=== PATIENT | female | born 1945 | race Caucasian/White ===

== ENCOUNTER 2019-09-12 14:08 | Outpatient (CLI) | payer MEDICARE, SELFPAY ==
--- NOTE | ~2019-09-12 | US_ITS ---
EXAMINATION: US art doppler w press LE DATE: 09/12/2019 16:05 MAT REPAIRER INDICATION: Peripheral vascular disease. TECHNIQUE: Segmental pressures and plethysmographic and Doppler waveforms of the brachial and lower e xtremity arteries were obtained. COMPARISON: None. FINDINGS: Right and left brachial artery pressures of 134 mm Hg and 137 mm Hg, respectively, are concordant (no rmal difference <= 30 mmHg). There is biphasic flow throughout the lower extremity arteries. Pressures could not be obtained and t herefore ankle and toe brachial indices are not performed. IMPRESSION: 1. Limited study. Biphasic flow present throughout the lower extremity arteries. Reviewed, dictated and finalized at location A. REPAIRER IMPRESSION: 1. Limited study. Biphasic flow present throughout the lower extremity arteries .
== END 2019-09-12 14:09 | disposition home or self-care (01) ==
PROVIDERS: PCP Family Medicine; Visit Provider Podiatrist Foot & Ankle Surgery
DX: I73.9 Peripheral vascular disease, unspecified (principal)
CPT/HCPCS: 93923

== ENCOUNTER 2019-09-27 10:01 | Inpatient (IN) | payer MEDICARE, SELFPAY ==
[2019-09-27] VITALS (12 sets, daily range): BP systolic 131–226; BP diastolic 68–135; PULSE 66–118; RESP 16–22; TEMP 36.2–36.8; O2SAT 56–100; BMI 21.7; BMI 22.4
--- NOTE | ~2019-09-27 | XR_ITS ---
EXAMINATION: XR toe 3rd LT min 2V DATE: 09/27/2019 11:17 INDICATION: Osteomyelitis with erythema and swelling at the left third toe. TECHNIQUE: Dorsal plantar, lateral and 2 oblique views of the left third toe were obtained. COMPARISON: Left foot radiographs dated 09/05/2019 FINDINGS: Bone alignment is normal. No fracture. Again seen is loss of the cortical margin and underlying lucen t osteolysis at the tuft of the left third distal phalanx consistent with osteomyelitis. No other les ions suspicious for ostomy colitis. Mild osteoarthritis at the first metatarsophalangeal and if you'v e the profiled interphalangeal joints. The third distal interphalangeal joint is poorly profiled on a ll of the images however there is no evident adjacent osteolysis to suggest septic arthritis. No soft tissue gas or radiopaque foreign bodies. IMPRESSION: Osteomyelitis at the tuft of the left third distal phalanx. Reviewed, dictated and finalized at location A. CLEANER MACHINE TENDER
--- NOTE | ~2019-09-27 | XR_ITS ---
EXAMINATION: XR chest 1V portable INDICATION: Shortness of breath TECHNIQUE: Portable AP chest at 2321 hours COMPARISON: 1108 hours FINDINGS: There is unchanged elevation of the left hemidiaphragm with subsegmental atelectasis of the left lung base. The lungs are otherwise free of acute opacities. There is a curvilinear line project ing over the left hemithorax which suggests pneumothorax however lung markings are seen extending to the chest wall. Finding is likely due to skin fold or other object external to the patient. The cardi omediastinal silhouette is stable. There are surgical changes of the upper abdomen. IMPRESSION: 1. Unchanged subsegmental atelectasis of the left lung base. Reviewed, dictated and finalized at location A. ORATE STRATEGY ASSOCIATE
--- NOTE | ~2019-09-27 | XR_ITS ---
EXAMINATION: NM lung vent and perfusion, XR chest 1V DATE: 09/30/2019 12:34 INDICATION: Aspiration and shortness of breath. Assess for pulmonary embolism. TECHNIQUE: 1. 10.2 mCi xenon-133 by inhalation and 5.3 mCi Tc-99m MAA by intravenous route. Scintigraphic imag es of the chest were obtained. 2. AP view of the chest was obtained. COMPARISON: Chest radiograph dated 09/27/2019 FINDINGS: Chest radiograph: Volume loss in the left hemithorax with unchanged elevation of the left hemidiaphragm. Bandlike opaci ty in the left lower lung zone likely related to associated atelectasis. Right lung remains clear. No pulmonary edema, pneumothorax or evident pleural effusion. Cardiomediastinal silhouette is normal. C holecystectomy clips in right upper quadrant. Additional postoperative changes in the left upper quad rant. Surgical clips at the left and right base of the neck likely related to prior thyroidectomy. VQ scan: There is matched relatively homogeneous asymmetric decreased uptake diffusely throughout the left mecca g on both the posterior ventilation and perfusion images. There is diffuse mild retention of activity throughout the lungs on the subsequent washout images consistent with some degree of obstructive pul monary disease. On the left lateral and LPO perfusion images there is further decreased uptake at the left lower lobe relative to the remainder of the left lung. No other perfusion defects appreciated. IMPRESSION: 1. Intermediate probability for pulmonary embolism. 2. Unchanged opacities in the left lower lung zone with corresponding volume loss consistent with ate lectasis. Differential would include associated small pleural effusion, aspiration, pneumonia or some combination thereof. Reviewed, dictated and finalized at location A. R GRINDER OPERATOR IMPRESSION: 1. Intermediate probability for pulmonary embolism. 2. Unchanged opacities in the left lower lung zone with corresponding volume lo ss consistent with atelectasis. Differential would include associated small ple ural effusion, aspiration, pneumonia or some combination thereof.
--- NOTE | ~2019-09-27 | XR_ITS ---
EXAMINATION: XR chest 2V DATE: 09/27/2019 11:16 INDICATION: Soreness of breath TECHNIQUE: frontal and lateral views of the chest were obtained. COMPARISON: Chest radiograph dated 09/02/[address] dated 06/12/2019 FINDINGS: Elevation of the left hemidiaphragm with bandlike discoid atelectasis extending across the inferior l ingula and left lower lobe. Remainder of lungs are clear. No pulmonary edema, pleural effusion or pne umothorax. The cardiomediastinal silhouette is normal. Cholecystectomy clips in the right upper quadr ant. Additional postoperative changes in the left upper quadrant likely related to prior gastric bypa ss procedure. IMPRESSION: 1. Bandlike atelectasis/scarring at the lingula and left lower lobe with secondary volume loss with e levation of the left hemidiaphragm. Reviewed, dictated and finalized at location A. LER DRIVER IMPRESSION: 1. Bandlike atelectasis/scarring at the lingula and left lower lobe with second graciela volume loss with elevation of the left hemidiaphragm.
--- NOTE | 2019-09-27 10:33 | ED.SOB ---
HPI - SOB/Dyspnea General Chief Complaint: Shortness of Breath/Dyspnea Stated Complaint: left middle toe wound/resp complaints Time Seen by Provider: 09/27/19 10:19 Source: patient and family (Daughter at bedside) Mode of arrival: ambulatory Limitations: no limitations and other (Poor historian) History of Present Illness HPI Narrative: Pt is a 73 y/o female presenting to the ED c/o possible aspiration. Pt's daughter at bedside reports the pt started coughing and choking on thick phlegm yesterday along with SOB. Per daughter, the pt has had multiple diagnosis of Aspiration PNA with sepsis previously, and states she had needed to be on a ventilator once as well. Per daughter, the pt was seen by her PCP. Dr. Callaway, who sent the pt here to undergo a breathing treatment. Pt's daughter states the pt was sent to a Breeder Service Technician for the frequent aspiration and notes the pt has had swallow tests performed previously. Per daughter, the pt has Osteomyelitis in her lt 3rd toe that is currently being monitored and has had an arterial doppler studies performed a week ago. Pt's daughter denies the pt experiencing vomiting. Per daughter, the pt has a Hx of DM. Pt denies SOB or CP currently in her ED bed. Pt is a poor historian. Pertinent past history: pneumonia, aspiration and sepsis Onset (ago): unknown (Yesterday) Associated symptoms: cough (Per daughter), sputum production (Per daughter) and other (SOB (per daughter)) Related Data Home Medications Medication Instructions Recorded Confirmed Lactobacillus acidophilus 2,000 mmu cells PO DAILY 07/02/19 09/27/19 [Probiotic Acidophilus] albuterol sulfate [Proventil HFA] 2 puff INHALATION Q4HWA PRN 07/02/19 09/27/19 alendronate 70 mg PO WEEKLY 07/02/19 09/27/19 budesonide [Pulmicort] 0.25 mg INHALATION BID PRN 07/02/19 09/27/19 deutetrabenazine [Austedo] 12 mg PO BID 07/02/19 09/27/19 fluoxetine 60 mg PO DAILY 07/02/19 09/27/19 fluticasone propionate 1 spray INTRANASAL BID 07/02/19 09/27/19 furosemide 40 mg PO 2XW 07/02/19 09/27/19 ipratropium-albuterol 3 ml INHALATION QID PRN 07/02/19 09/27/19 levothyroxine 100 mcg PO DAILY 07/02/19 09/27/19 potassium chloride 10 meq PO DAILY 07/02/19 09/27/19 vitamin E 400 unit PO WEEKLY 07/02/19 09/27/19 clindamycin HCl 300 mg PO Q8H 09/27/19 09/27/19 doxycycline hyclate 100 mg PO Q12H 09/27/19 09/27/19 Allergies Allergy/AdvReac Type Severity Reaction Status Date / Time rosiglitazone Allergy Severe HIVES/RASH Verified 09/27/19 11:10 celecoxib Allergy Mild Hives Verified 09/27/19 11:10 iodine Allergy Mild Hives Verified 09/27/19 11:10 lidocaine Allergy Mild preserve Verified 09/27/19 11:10 free only shellfish derived Allergy Mild Hives Verified 09/27/19 11:10 Sulfa (Sulfonamide Allergy Mild Hives Verified 09/27/19 11:10 Antibiotics) zinc Allergy Mild hives Verified 09/27/19 11:10 adhesive tape Allergy Unknown Hives / Verified 09/27/19 11:10 Red Face zinc oxide Allergy Unknown Rash Verified 09/27/19 11:10 lisinopril AdvReac Unknown ITCHING/LIGHT Verified 09/27/19 11:10 HEADED DIZZY Contrast Media Allergy Unknown Rash Uncoded 07/03/19 11:12 Review of Systems Review of Systems: All systems reviewed & are unremarkable except as noted in HPI and below Cardiovascular: Cardiovascular: Denies chest pain Respiratory: Respiratory: Reports cough (Productive with phlegm (per daughter)) and Reports dyspnea (Per daughter) Gastrointestinal: Gastrointestinal: Denies vomiting (Per daughter) [facility] Past Medical History Medical History Anxiety Bacterial lobar pneumonia CKD (chronic kidney disease) stage 3 Depression DVT (deep venous thrombosis) Esophageal dilatation GERD (gastroesophageal reflux disease) History of thyroid cancer On home O2 Renal stones Thyroid ca Surgical History Surgical History H/O bariatric surgery H/O esophagogastroduodenosco
[2019-09-27] MEDS: IPRATROPIUM BR 0.02% INH SOLN 0.5 MG/2.5 ML VIAL INHALATION (10:56)
[2019-09-27] MEDS: ALBUTEROL SULFATE NEB 2.5 MG/0.5 ML INH 5 MG INHALATION (10:56)
[2019-09-27 12:18] LABS: Basophils Percent Auto 0.1 % (0.2-1.2); Hematocrit 36.3 % (37.0-47.0); Hemoglobin 11.3 g/dL (12.0-15.0); Immature Granulocyte Absolute 0.05 K/mm3 (0.00-0.031); Immature Granulocyte Percent A 0.5 % (0-0.5); Lymphocytes Absolute Auto 1.06 K/mm3 (0.9-3.2); Lymphocytes Percent Auto 11.6 % (18.3-44.2); Mean Corpuscular HGB Conc 31.1 g/dl (32-36); Mean Corpuscular Hemoglobin 27.2 pg (26-34); Mean Corpuscular Volume 87.5 fl (80-100); Mean Platelet Volume 10.4 fl (7.4-10.4); Monocytes Absolute Auto 0.7 K/mm3 (0.1-0.6); Monocytes Percent Auto 7.4 % (2.6-8.5); Neutrophils Absolute Auto 7.3 K/mm3 (1.3-6.7); Neutrophils Percent Auto 80.4 % (45.5-73.1); Platelet Count Result 241 k/mm3 (150-375); Red Blood Count 4.15 M/mm3 (4.2-5.4); Red Cell Distribution Width 12.9 % (11.5-14.5); White Blood Count 9.1 K/mm3 (4.5-10.0)
[2019-09-27 12:37] LABS: Blood Urea Nitrogen 28 mg/dL (7-17); Calcium 9.6 mg/dL (8.4-10.2); Carbon Dioxide 26 mmol/L (22-30); Chloride 103 mmol/L (98-107); Estimated CRCL calculation 29 ml/min; Estimated Glomerular Filt Rate 40; Glucose 148 mg/dL (65-105); Potassium 5.3 mmol/L (3.4-5.0); Sodium 143 mmol/L (137-145)
--- NOTE | 2019-09-27 14:53 | ADMGEN ---
This patient, Concha Melendez, was admitted to 2 Medical Room 260-. Patient/family oriented to hospital policies and general routines including ID bracelet, bed and alarms, visiting hours, pain management, procedures, bathroom and other care routines, personal items, smoking policy, room service/diet, and visiting hours. Valuables list has been completed. Information on how to activate the Rapid Response Team has been discussed. Patient/Family are encouraged to report perceived risks to care and to ask questions if they do not understand what they are told or what they should do.
--- NOTE | 2019-09-27 15:48 | PM.IMHP ---
H&P: HPI History of Present Illness Chief complaint: osteomyelitis/possible aspiration Narrative: Concha Melendez is a 73 year old female who has been dealing with osteomyelitis to the left 3rd toe since approximately this past August and she has been seeing Dr. Mckee as. The patient has been on both clindamycin and doxycycline. Patient had tendon release last Monday and just had the stitches removed by Dr. Mckee within the last couple days. The patient also has been cough being and having a lot of thick clear sputum. The patient had had aspiration pneumonia in the past. This last May 2019 she was sent to [facility] and ended up on a ventilator at that time. Her daughter was afraid that this could happen again so she took her mother to Dr. Bennett today to be evaluated. The patient has been having problems with swallowing in the past and she had a swallow study which she passed. She has had an EGD with Dr. Mathew and had some esophageal dilatation. The patient used and incentive spirometer at 1 time when she was in hospital and has 1 at home but has not been using it. She also has nebulizer treatments at home that she uses occasionally when needed. The patient has not been vomiting. The daughter tells me that she drinks some water in the emergency room and did have a coughing episode but soon recovered from it. We discussed repeating a swallow study in the daughter denied the need for it at this time. The daughter was fearful that the patient may be getting aspiration pneumonia again. The ED provider looked at the left 3rd toe and decided that it was infected. He did order x-ray for the left foot and was read as osteomyelitis at the tuft of the 3rd left distal phalanx. The patient is diabetic. The patient was started on vancomycin and Primaxin. Date of service 09/27/2019. Review of Systems Review of Systems: Narrative: Complaining of cough without any fever chills. She has thick clears sputum. She has been dealing with infection to the left 3rd toe since approximately August of this year. She has been seeing Dr. mckee the barrel burner for this infection. Ago she had tendon release that toe. Within the last couple days she has had the stitches removed. All systems reviewed & are unremarkable except as noted in HPI and below Constitutional: Constitutional: Reports as per HPI, Reports no additional constitutional complaints and Reports lethargy Eyes: Eyes: Reports as per HPI and Reports no additional eye complaints ENT: Reports system reviewed and no additional complaints, except as documented, Reports Normal hearing present, Reports nasal discharge and Reports other (Postnasal drainage) Cardiovascular: Cardiovascular: Reports no additional cardiovascular complaints Respiratory: Respiratory: Reports no additional respiratory complaints, Reports no additional respiratory complaints and Reports cough Gastrointestinal: Gastrointestinal: Reports as per HPI and Reports no additional gastrointestinal complaints Musculoskeletal: Musculoskeletal: Reports no additional musculoskeletal complaints and Reports other (Pain to left foot) Integumentary/Breasts: Skin/Breast: Reports system reviewed and no additional complaints, except as docu, Reports as per HPI, Reports change in nails and Reports other (Wound to left 3rd toe) Neurologic: Reports system reviewed and no additional complaints, except as documented, Reports as per HPI and Reports Normal hearing present Psychiatric: Psychiatric: Reports no additional psychiatric complaints and Reports as per HPI Comments: History of bipolar. Endocrine: Endocrine: Reports no additional endocrine complaints Hematologic/Lymphatic: Hematologic/Lymphatic: Reports no additional hematologic/lymphatic complaints Allergic/Immunologic: Allergic/Immunologic: Reports no additional allergic/immunologic complaints [facility] Past Medical History Medical History (Updated 09/27/19 @ 16:46 b
[2019-09-27] MEDS: LACTATED RINGERS 1,000 ML 125 ML IV CONT (18:18)
[2019-09-27] MEDS: ONDANSETRON INJ 4 MG/2 ML VIAL IV PUSH (18:38)
[2019-09-27] MEDS: FUROSEMIDE 40 MG TABLET PO (18:42)
[2019-09-27] MEDS: APIXABAN 5 MG TABLET PO (18:42)
[2019-09-27 18:46] LABS: Glucose Point of Care 153 (65-105)
[2019-09-27] MEDS: TRAZODONE HCL 50 MG TABLET PO (22:17)
[2019-09-27] MEDS: FLUTICASONE PROPIONATE 0.05% NA SPR 16 GM BTL (*BKC) 1 SPRAY NASAL (22:17)
[2019-09-27] MEDS: IMIPENEM/CILASTATIN SODIUM 250 MG in DEXTROSE 5% 100 ML 300 MG IVPB (22:17)
[2019-09-27] MEDS: FAMOTIDINE 20 MG TABLET PO (22:17)
--- NOTE | 2019-09-27 23:02 | ECG_ITS ---
Measurements Intervals [place] Rate: 105 P: 81 AK: 179 QRS: -10 QRSD: 109 T: 105 QT: 330 QTc: 437 Interpretive Statements SINUS TACHYCARDIA BORDERLINE ST-T WAVE ABNORMALITY- LATERAL LEADS BASELINE ARTIFACT- II, III, AVR, AVF, V2 ABNORMAL ECG Electronically Signed On 09-28-2019 8:25:24 SLEEVE BASTER by Devon Florez D.O.
[2019-09-27] MEDS: NITROGLYCERIN SL 0.4 MG TABLET SUBLINGUAL ×2 (23:07→23:15)
[2019-09-27 23:21] LABS: Alveolar/Arterial O2 Gradient 68.2 mmHg; Base Excess ABG -2.3 mEq/l (+/-2.0); HCO3 ABG 24.3 mEq/l (22.0-26.0); Oxygen Saturation ABG 99.4 % (95.0-100.0); PCO2 ABG 49.8 mmHg (35.0-45.0); PO2 ABG 232.3 mmHg (80.0-100.0); Total Hemoglobin 12.4 g/dL (12.0-18.0); pH ABG 7.307 (7.350-7.450)
[2019-09-27 23:22] LABS: Device NASAL CANNULA; Fractional Inspired Oxygen 50 %; Modified Allen's Test Pass; Oxygen Content ABG 17.4 %vol (16.0-22.0); Oxyhemoglobin 96.7 % THb (90.0-100.0); PO2 FiO2 Ratio Arterial Blood 4.65 %; Site Drawn RIGHT RADIAL
--- NOTE | 2019-09-27 23:24 | ECG_ITS ---
Measurements Intervals [place] Rate: 90 P: -25 CO: 171 QRS: 69 QRSD: 105 T: -38 QT: 386 QTc: 473 Interpretive Statements SINUS RHYTHM CONSIDER INFERIOR INFARCT, AGE INDETERMINATE ABNORMAL ECG Electronically Signed On 09-28-2019 8:26:13 DRIVING SCHOOL INSTRUCTOR by Devon Florez D.O.
[2019-09-27 23:28] LABS: Hematocrit 37.1 % (37.0-47.0); Hemoglobin 11.3 g/dL (12.0-15.0); Mean Corpuscular HGB Conc 30.5 g/dl (32-36); Mean Corpuscular Volume 88.8 fl (80-100); Mean Platelet Volume 10.4 fl (7.4-10.4); Platelet Count Result 263 k/mm3 (150-375); Red Blood Count 4.18 M/mm3 (4.2-5.4); Red Cell Distribution Width 13.1 % (11.5-14.5); White Blood Count 12.5 K/mm3 (4.5-10.0)
[2019-09-27] MEDS: PHARMACIST COMMUNICATION ORDER 1 EACH XX (23:35)
--- NOTE | 2019-09-27 23:37 | PM.EVENT ---
Event Note Event Note Event Note: This is a 73 year old diabetic female who was just admitted to our Hospitalist service for osteomyelitis today and who tonight suddenly started to ask for a breathing treatment. The patient was complaining of shortness of breath. Shortly afterwards the patient started to experience midsternal chest pain. A rapid response was called and I arrived to bedside within moment. The patient was diaphoretic and tachycardic. Vital signs demonstrated her blood pressure was elevated. She complained to me of severe chest pain. The patient was treated with nitroglycerin SL. EKG was obtained which demonstrated sinus tachycardia. On exam the patient was very wheezy. CXR was obtained which did not demonstrate any changes. She was given a Xopenex Neb. Nursing staff suctioned the patient's mouth. ABG was obtained. The patient improved signifciantly with the nebulization and oxygen supplementation.
[2019-09-27 23:42] LABS: Glucose Point of Care 182 (65-105)
[2019-09-27 23:42] LABS: Lactic Acid 1.2 mmol/L (0.7-2.1)
[2019-09-27 23:44] LABS: Blood Urea Nitrogen 24 mg/dL (7-17); Calcium 8.9 mg/dL (8.4-10.2); Carbon Dioxide 26 mmol/L (22-30); Chloride 102 mmol/L (98-107); Estimated CRCL calculation 32 ml/min; Estimated Glomerular Filt Rate 44; Glucose 216 mg/dL (65-105); Lipase 49 U/L (23-300); Potassium 4.8 mmol/L (3.4-5.0); Sodium 138 mmol/L (137-145)
[2019-09-27 23:55] LABS: Troponin I 0.012 ng/mL (0.000-0.034)
[2019-09-28] VITALS (18 sets, daily range): BP systolic 113–165; BP diastolic 57–82; PULSE 61–112; RESP 17–22; TEMP 36.2–37.3; O2SAT 94–100
[2019-09-28 00:11] LABS: D Dimer 0.79 ug/mL (<0.48)
--- NOTE | 2019-09-28 01:12 | PC.NURSE ---
This patient, Concha Melendez, was received from [[id number] ] on 09/28/19 at 0113. Personal belongings list checked and signed. Patient/family oriented to unit policies and routines
--- NOTE | 2019-09-28 02:24 | PC.NURSE ---
called by Lana Martinez CNA that pt was requesting a breathing treatment, pt complaining of shortness of breath. Respiratory called for PRN breathing treatment. Upon entering pt room, pt short of breath with labored breathing. On room air pt O2 sats 53%. Rapid response called and pt put on 5L O2 NC
[2019-09-28 04:40] LABS: Basophils Percent Auto 0.3 % (0.2-1.2); Eosinophils Percent Auto 0.1 % (0-4.4); Hematocrit 34.1 % (37.0-47.0); Hemoglobin 10.6 g/dL (12.0-15.0); Immature Granulocyte Absolute 0.04 K/mm3 (0.00-0.031); Immature Granulocyte Percent A 0.4 % (0-0.5); Lymphocytes Absolute Auto 0.89 K/mm3 (0.9-3.2); Mean Corpuscular HGB Conc 31.1 g/dl (32-36); Mean Corpuscular Hemoglobin 27.1 pg (26-34); Mean Corpuscular Volume 87.2 fl (80-100); Mean Platelet Volume 9.8 fl (7.4-10.4); Monocytes Absolute Auto 0.9 K/mm3 (0.1-0.6); Monocytes Percent Auto 8.5 % (2.6-8.5); Neutrophils Absolute Auto 9.2 K/mm3 (1.3-6.7); Neutrophils Percent Auto 82.7 % (45.5-73.1); Platelet Count Result 216 k/mm3 (150-375); Red Blood Count 3.91 M/mm3 (4.2-5.4); White Blood Count 11.1 K/mm3 (4.5-10.0)
[2019-09-28 04:48] LABS: Hemoglobin A1C 6.7 % (<5.7)
[2019-09-28 04:59] LABS: Alanine Aminotransferase 26 U/L (4-35); Albumin Level 3.6 g/dL (3.5-5.1); Alkaline Phosphatase 66 U/L (38-126); Aspartate Amino Transferase 29 U/L (14-36); Bilirubin,Total 0.3 mg/dL (0.2-1.3); Blood Urea Nitrogen 23 mg/dL (7-17); Calcium 8.7 mg/dL (8.4-10.2); Carbon Dioxide 28 mmol/L (22-30); Chloride 102 mmol/L (98-107); Estimated CRCL calculation 32 ml/min; Estimated Glomerular Filt Rate 44; Glucose 138 mg/dL (65-105); Magnesium 1.9 mg/dL (1.6-2.3); Potassium 4.9 mmol/L (3.4-5.0); Sodium 137 mmol/L (137-145)
[2019-09-28] MEDS: LACTATED RINGERS 1,000 ML 125 ML IV CONT ×3 (05:26→21:47)
[2019-09-28] MEDS: IMIPENEM/CILASTATIN SODIUM 250 MG in DEXTROSE 5% 100 ML 300 MG IVPB ×3 (05:26→21:50)
[2019-09-28 07:14] LABS: Thyroid Stimulating Hormone Reflex 0.261 uIU/mL (0.465-4.68)
[2019-09-28 07:41] LABS: Free T4 Free Thyroxine Reflex 1.07 ng/dL (0.78-2.19)
[2019-09-28 08:24] LABS: Total Triiodothyronine (T3) 0.79 NG/ML (0.97-1.69)
[2019-09-28 08:28] LABS: Glucose Point of Care 137 (65-105)
[2019-09-28] MEDS: FLUTICASONE PROPIONATE 0.05% NA SPR 16 GM BTL (*BKC) 1 SPRAY NASAL ×2 (09:52→21:47)
--- NOTE | 2019-09-28 10:36 | PHAR ---
[facility] VERIFIED = [id number] [place] 12 MG TWICE A DAY
[2019-09-28 13:10] LABS: Glucose Point of Care 103 (65-105)
--- NOTE | 2019-09-28 13:45 | PM.IMPN ---
Progress Note: A&P Assessment and Plan (1) Shortness of breath: Code(s): R06.02 - Shortness of breath Status: Acute Assessment and Plan: Acute episode this morning resolved after nebulizer treatments and suctioning. Patient has had swallow studies previously which she has passed and does not wish to repeat. She would like to have diet. Patient reports has had pureed diet and will start. Currently on room air. Will monitor. Speech therapist did see patient after my visit with recommendation for minced and moist diet with thin liquids. Diet adjusted. (2) Osteomyelitis: Qualifiers: Osteomyelitis type: unspecified type Osteomyelitis location: foot Laterality: left Qualified Code(s): M86.9 - Osteomyelitis, unspecified Code(s): M86.9 - Osteomyelitis, unspecified Status: Chronic Assessment and Plan: Osteomyelitis of the left 3rd digit. Appreciate help from Dr. Maximo madsen. Currently on IV vancomycin and imipenem. Plan for amputation this coming week. Infectious disease consulted per podiatry for further guidance regarding treatment. Will continue to monitor. (3) DM2 (diabetes mellitus, type 2): Qualifiers: Diabetes mellitus termite exterminator helper insulin use: without residential use Diabetes mellitus complication status: with kidney complications Diabetes mellitus complication detail: with chronic kidney disease Chronic kidney disease stage: stage 3 (moderate) Qualified Code(s): E11.22 - Type 2 diabetes mellitus with diabetic chronic kidney disease; N18.3 - Chronic kidney disease, stage 3 (moderate) Code(s): E11.9 - Type 2 diabetes mellitus without complications Status: Chronic Assessment and Plan: Not on medication at home. Glucose reviewed on 09/28/2019 and stable. Hemoglobin A1c 6.7. Will continue to monitor. Sliding scale insulin available if needed. (4) CKD (chronic kidney disease): Qualifiers: Chronic kidney disease stage: stage 3 (moderate) Qualified Code(s): N18.3 - Chronic kidney disease, stage 3 (moderate) Code(s): N18.9 - Chronic kidney disease, unspecified Status: Chronic Assessment and Plan: Creatinine at baseline. Will monitor. (5) HTN (hypertension) with goal to be determined: Code(s): I10 - Essential (primary) hypertension Status: Chronic Assessment and Plan: Blood pressure reviewed on 09/28/2019 and stable. Will continue to monitor on home spironolactone and furosemide. Telemetry reviewed on 09/28/2019 with sinus rhythm. (6) Hyperlipidemia: Qualifiers: Hyperlipidemia type: unspecified Qualified Code(s): E78.5 - Hyperlipidemia, unspecified Code(s): E78.5 - Hyperlipidemia, unspecified Status: Chronic Assessment and Plan: Continue home atorvastatin. LFTs normal. (7) Iron deficiency anemia: Qualifiers: Iron deficiency anemia type: unspecified iron deficiency Qualified Code(s): D50.9 - Iron deficiency anemia, unspecified Code(s): D50.9 - Iron deficiency anemia, unspecified Status: Chronic Assessment and Plan: Hemoglobin 10.6 today. Will continue to monitor. No active sign of bleeding. (8) Hypothyroidism: Qualifiers: Hypothyroidism type: unspecified Qualified Code(s): E03.9 - Hypothyroidism, unspecified Code(s): E03.9 - Hypothyroidism, unspecified Status: Chronic Assessment and Plan: TSH slightly low but free T4 normal. Will continue home levothyroxine. (9) Dementia: Qualifiers: Dementia type: unspecified type Dementia behavioral disturbance: without behavioral disturbance Qualified Code(s): F03.90 - Unspecified dementia without behavioral disturbance Code(s): F03.90 - Unspecified dementia without behavioral disturbance Status: Chronic Assessment and Plan: Not on specific medication at home. Will monitor. (10) Bipolar 1 disorder: Code(s):
--- NOTE | 2019-09-28 14:58 | PM.IMHP ---
H&P: HPI History of Present Illness Chief complaint: osteomyelitis/possible aspiration Narrative: Concha Melendez is a 73 year old female, I was consulted through the ER to evaluate continued infection of left 3rd digit she has osteomyelitis of the distal phalanx. Denies fever chills nausea vomiting. I was treating patient as an outpatient for a chronic ulcer being treated with oral antibiotics. The patients toe worsened she was admitted September 27 and has been on IV antibiotics relates less pain now. Review of Systems Musculoskeletal: Comments: Swelling and pain to 3rd toe left foot. [facility] Past Medical History Medical History (Updated 09/27/19 @ 18:53 by Sabrina Callaway MD) Anxiety Bacterial lobar pneumonia Bipolar disease, chronic CKD (chronic kidney disease) stage 3 Dementia Depression DM2 (diabetes mellitus, type 2) DVT (deep venous thrombosis) Left leg Esophageal dilatation GERD (gastroesophageal reflux disease) History of kidney stones History of thyroid cancer HTN (hypertension) with goal to be determined Hyperlipidemia Hypothyroidism Secondary to partial thyroidectomy secondary to thyroid cancer Iron deficiency anemia On home O2 Renal stones Systolic murmur Thyroid ca Surgical History Surgical History (Updated 09/27/19 @ 16:16 by Tiffany Sylvester NP) H/O abdominal surgery Adhesiolysis H/O bariatric surgery H/O esophagogastroduodenoscopy H/O release of tendon Left 3rd toe approximately a week ago H/O: hysterectomy History of lithotripsy Multiple times History of thyroidectomy, subtotal Hx of cataract removal with insertion of prosthetic lens Bilaterally Hx of cholecystectomy Total knee replacement status Bilateral Family History Family History (Updated 09/27/19 @ 16:19 by Tiffany Sylvester NP) Mother Hypertension Family history of malignant neoplasm of thyroid Family history of arthritis Sibling Hypertension Asthma Family history of arthritis Family history of kidney disease Family history of malignant neoplasm of thyroid Family history of malignant neoplasm of kidney Daughter Cervical cancer Thyroid cancer Father Diabetes mellitus Other Family history of malignant neoplasm of cervix Social History Social History (Updated 09/27/19 @ 16:49 by Tiffayn Sylvester NP) Social History: Power of aircraft maintenance engineer is Lana Harris and the patient desires to be a full code. The patient is . She rarely drinks and has never smoked. She retired from being a state worker. She has 2 children. Smoking status: Never smoker Second hand tobacco smoke exposure: No Alcohol intake: never Substance use: never Substance use type: does not use Living arrangements: with family Additional living arrangements comments: She lives with her daughter. Occupation/Education: retired Gender identity (if verbalized by the patient): Female Spiritual care concerns: No Agree to blood products: Yes Meds Home Medications and Allergies Home Medications Medication Instructions Recorded Confirmed Type Lactobacillus acidophilus 2,000 mmu cells PO DAILY 07/02/19 09/27/19 History [Probiotic Acidophilus] albuterol sulfate [Proventil HFA] 2 puff INHALATION Q4HWA PRN 07/02/19 09/27/19 History alendronate 70 mg PO WEEKLY 07/02/19 09/27/19 History budesonide [Pulmicort] 0.25 mg INHALATION BID PRN 07/02/19 09/27/19 History deutetrabenazine [Austedo] 12 mg PO BID 07/02/19 09/27/19 History fluoxetine 60 mg PO DAILY 07/02/19 09/27/19 History fluticasone propionate 1 spray INTRANASAL BID 07/02/19 09/27/19 History furosemide 40 mg PO 2XW 07/02/19 09/27/19 History ipratropium-albuterol 3 ml INHALATION QID PRN 07/02/19 09/27/19 History levothyroxine 100 mcg PO DAILY 07/02/19 09/27/19 History potassium chloride 10 meq PO DAILY 07/02/19 09/27/19 History vitamin E 400 unit PO WEEKLY 07/02/19 09/27/19 History apixaban 5 mg tablet 5 mg PO BID #180 tablet 07/23/19 02
--- NOTE | 2019-09-28 15:57 | PCSTNOTE ---
Bedside Swallow Evaluation This pt was seen for a bedside swallow evaluation. She reports nausia and would only accept trials of water and 3cc puree. She is edentulous and was placed on a pureed diet with thin liquids. No signs or symptoms of aspiration were noted with any consistency. The pt did hold thin liquid in her mouth for approx 1 min before initiating a swallow. She said it was due to nausia. It is recommended for the pt to receive an oral diet of minced and moist food and thin liquids. Position during intake should be upright. She should have frequent observation during meals. The following precautions should be observed: -small bites/sips -alternate liquids and solids Skilled ST is not warranted at this time, as the pt's modified diet is due to dentition.
[2019-09-28] MEDS: APIXABAN 5 MG TABLET PO (17:04)
[2019-09-28 17:47] LABS: Glucose Point of Care 131 (65-105)
[2019-09-28] MEDS: MUPIROCIN 2% OINT 22 GM TUBE 1 APPLIC TOPICAL (18:45)
[2019-09-28 21:18] LABS: Glucose Point of Care 126 (65-105)
[2019-09-28] MEDS: FAMOTIDINE 20 MG TABLET PO (21:47)
[2019-09-28] MEDS: TRAZODONE HCL 50 MG TABLET PO (21:47)
[2019-09-29] VITALS (8 sets, daily range): BP systolic 109–119; BP diastolic 59–69; PULSE 60–71; RESP 16–20; TEMP 36.2–36.7; O2SAT 93–97
[2019-09-29 05:35] LABS: Hematocrit 30.4 % (37.0-47.0); Hemoglobin 9.3 g/dL (12.0-15.0); Mean Corpuscular HGB Conc 30.6 g/dl (32-36); Mean Corpuscular Hemoglobin 26.9 pg (26-34); Mean Corpuscular Volume 87.9 fl (80-100); Mean Platelet Volume 10.7 fl (7.4-10.4); Platelet Count Result 184 k/mm3 (150-375); Red Blood Count 3.46 M/mm3 (4.2-5.4); White Blood Count 9.4 K/mm3 (4.5-10.0)
[2019-09-29 05:57] LABS: Blood Urea Nitrogen 16 mg/dL (7-17); Calcium 8.3 mg/dL (8.4-10.2); Carbon Dioxide 30 mmol/L (22-30); Chloride 94 mmol/L (98-107); Estimated CRCL calculation 38 ml/min; Estimated Glomerular Filt Rate 55; Glucose 111 mg/dL (65-105); Magnesium 1.6 mg/dL (1.6-2.3); Potassium 3.7 mmol/L (3.4-5.0); Sodium 135 mmol/L (137-145)
[2019-09-29] MEDS: IMIPENEM/CILASTATIN SODIUM 250 MG in DEXTROSE 5% 100 ML 300 MG IVPB (06:06)
[2019-09-29] MEDS: LACTATED RINGERS 1,000 ML 125 ML IV CONT ×2 (06:06→14:20)
[2019-09-29] MEDS: LEVOTHYROXINE SODIUM 100 MCG TABLET PO (06:06)
[2019-09-29 08:16] LABS: Glucose Point of Care 104 (65-105)
[2019-09-29] MEDS: MAGNESIUM OXIDE 400 MG TABLET PO (09:06)
[2019-09-29] MEDS: FLUOXETINE HCL 20 MG CAP 60 MG PO (09:07)
[2019-09-29] MEDS: APIXABAN 5 MG TABLET PO (09:07)
[2019-09-29] MEDS: ACIDOPHILUS/BULGARICUS CHEWABLE TABLET 1 TABLET PO (09:07)
[2019-09-29] MEDS: SPIRONOLACTONE 25 MG TABLET PO (09:08)
[2019-09-29] MEDS: FAMOTIDINE 20 MG TABLET PO ×2 (09:08→21:40)
[2019-09-29] MEDS: ATORVASTATIN 10 MG TABLET PO (09:08)
[2019-09-29] MEDS: FLUTICASONE PROPIONATE 0.05% NA SPR 16 GM BTL (*BKC) 1 SPRAY NASAL ×2 (09:08→18:46)
[2019-09-29] MEDS: MUPIROCIN 2% OINT 22 GM TUBE 1 APPLIC TOPICAL (09:11)
--- NOTE | 2019-09-29 10:17 | PM.IMPN ---
Progress Note: A&P Assessment and Plan (1) Shortness of breath: Code(s): R06.02 - Shortness of breath Status: Acute Assessment and Plan: Had episode yesterday morning but no further episodes. Was seen by speech therapy for bedside swallow on 09/28/2019 with recommendation for minced moist diet with thin liquids. Does still have thick secretions at times requiring suctioning. Remains on room air. Will monitor. Telemetry reviewed on 09/29/2019 with sinus rhythm -will discontinue telemetry. (2) Osteomyelitis: Qualifiers: Laterality: left Osteomyelitis location: foot Osteomyelitis type: unspecified type Qualified Code(s): M86.9 - Osteomyelitis, unspecified Code(s): M86.9 - Osteomyelitis, unspecified Status: Chronic Assessment and Plan: Osteomyelitis of the left 3rd digit. Appreciate help from Dr. Mckee. Remains on IV vancomycin and imipenem with ID consulted per podiatry for further guidance regarding treatment. Discussed with podiatry today. Plan for surgery tomorrow. Will continue to monitor. (3) DM2 (diabetes mellitus, type 2): Qualifiers: Chronic kidney disease stage: stage 3 (moderate) Diabetes mellitus complication detail: with chronic kidney disease Diabetes mellitus complication status: with kidney complications Diabetes mellitus long goods drier insulin use: without long goods drier use Qualified Code(s): E11.22 - Type 2 diabetes mellitus with diabetic chronic kidney disease; N18.3 - Chronic kidney disease, stage 3 (moderate) Code(s): E11.9 - Type 2 diabetes mellitus without complications Status: Chronic Assessment and Plan: Not on medication at home. Glucose reviewed on 09/29/2019 and controlled. Hemoglobin A1c 6.7. Will continue to monitor. Sliding scale insulin available if needed. (4) CKD (chronic kidney disease): Qualifiers: Chronic kidney disease stage: stage 3 (moderate) Qualified Code(s): N18.3 - Chronic kidney disease, stage 3 (moderate) Code(s): N18.9 - Chronic kidney disease, unspecified Status: Chronic Assessment and Plan: Creatinine 1.00 today and at baseline. Will monitor. (5) HTN (hypertension) with goal to be determined: Code(s): I10 - Essential (primary) hypertension Status: Chronic Assessment and Plan: Blood pressure reviewed on 09/29/2019 and well controlled. Will continue to monitor on home spironolactone and furosemide. (6) Hyperlipidemia: Qualifiers: Hyperlipidemia type: unspecified Qualified Code(s): E78.5 - Hyperlipidemia, unspecified Code(s): E78.5 - Hyperlipidemia, unspecified Status: Chronic Assessment and Plan: Continue home atorvastatin. LFTs normal. (7) Iron deficiency anemia: Qualifiers: Iron deficiency anemia type: unspecified iron deficiency Qualified Code(s): D50.9 - Iron deficiency anemia, unspecified Code(s): D50.9 - Iron deficiency anemia, unspecified Status: Chronic Assessment and Plan: Hemoglobin at 9.3 today but no signs of bleeding. Will continue to monitor. Transfuse if needed. (8) Hypothyroidism: Qualifiers: Hypothyroidism type: unspecified Qualified Code(s): E03.9 - Hypothyroidism, unspecified Code(s): E03.9 - Hypothyroidism, unspecified Status: Chronic Assessment and Plan: TSH slightly low but free T4 normal. Will continue home levothyroxine. (9) Dementia: Qualifiers: Dementia behavioral disturbance: without behavioral disturbance Dementia type: unspecified type Qualified Code(s): F03.90 - Unspecified dementia without behavioral disturbance Code(s): F03.90 - Unspecified dementia without behavioral disturbance Status: Chronic Assessment and Plan: Not on specific medication at home. Appears stable. Will monitor. (10) Bipolar 1 disorder: Code(s): F31.9 - Bipolar disorder, unspecified
--- NOTE | 2019-09-29 11:35 | PC.NURSE ---
This patient, Concha Melendez, was transferred to [facility] on 09/29/19 at 1135. Personal belongings sent with patient. Belongings list checked and signed with receiving RN. Report given to JEREMIAH Ya. Appropriate documentation sent with patient.
[2019-09-29 12:16] LABS: Glucose Point of Care 124 (65-105)
--- NOTE | 2019-09-29 12:21 | PC.NURSE ---
This patient, Concha Melendez, was received from [ [id number]] on 09/29/19 at 1222. Personal belongings list checked and signed. Patient/family oriented to unit policies and routines
--- NOTE | 2019-09-29 13:35 | WPDPN ---
Progress Note: A&P Additional Plan -Scheduled for left third digit amputation MondaySeptember 30, in the afternoon. IV sedation with local anesthsia. -Patients daughter was in the room and is agreeable to amputation. -NPO after breakfast -Obtain consent -Anesthesia consult -Medicine will hold Eliquis until 24 hours post op, start Lovenox. Will continue to monitor patient Dr. Mckee [phone] Time Spent With Patient Time with patient: 15 - 25 minutes Exam Extrem: Ankle/foot/toe images: 1. Less edema and erythema present to the left 3rd digit. Limited distal to the distal interphalangeal joint. Lightly palpable pedal pulses. Objective Data Vital Signs Vital Signs: Vital Signs - 24 hr 09/28/19 14:21 09/28/19 16:00 09/28/19 17:00 Temperature 37.2 C Pulse Rate 77 78 83 Respiratory Rate 18 Blood Pressure 121/67 Pulse Oximetry 97 09/28/19 18:31 09/28/19 19:54 09/28/19 20:00 Temperature 36.3 C L Pulse Rate 81 72 74 Respiratory Rate 18 Blood Pressure 136/72 Pulse Oximetry 98 09/28/19 22:00 09/28/19 23:58 09/29/19 00:00 Temperature 36.6 C Pulse Rate 69 61 62 Respiratory Rate 18 Blood Pressure 116/57 L Pulse Oximetry 97 09/29/19 02:00 09/29/19 04:00 09/29/19 06:00 Temperature 36.2 C L Pulse Rate 64 65 61 Respiratory Rate 20 Blood Pressure 113/59 L Pulse Oximetry 96 09/29/19 08:00 09/29/19 10:00 09/29/19 12:05 Temperature 36.6 C 36.7 C Pulse Rate 61 62 71 Respiratory Rate 20 16 Blood Pressure 119/65 111/69 Pulse Oximetry 97 95 Intake/Output Intake/Output: Intake & Output 09/26/19 09/27/19 09/28/19 09/29/19 23:59 23:59 23:59 23:59 Intake Total 690 2900 1168 Output Total 150 600 650 Balance 540 2300 518 Meds/Results Medications: Active Medications Generic Name Dose Route Start Last Admin Trade Name Freq PRN Reason Stop Dose Admin Albuterol 2.5 mg 09/27/19 15:46 Albuterol Sulf Neb 2.5mg/0.5ml INHALATION Q4HRT PRN Shortness Of Breath Alendronate Sodium 70 mg 09/30/19 06:30 Fosamax PO Mo@0630 NIALL Atorvastatin Calcium 10 mg 09/28/19 09:00 09/29/19 09:08 Lipitor PO 10 mg DAILY NIALL Administration Budesonide 0.25 mg 09/27/19 16:50 Pulmicort Respule Neb INHALATION Q12HRT PRN Wheezing Dextrose 12.5 gm 09/27/19 16:41 Dextrose 50% Syringe IV PUSH PRN PRN Hypoglycemia Protocol Diphenhydramine HCl 25 mg 09/27/19 15:46 Benadryl Inj IV PUSH Q4H PRN Itching Enoxaparin Sodium 60 mg 09/29/19 21:00 Lovenox SUB-Q Q12HR NIALL Famotidine 20 mg 09/27/19 21:00 09/29/19 09:08 Pepcid PO 20 mg Q12HR NIALL Administration Fluoxetine HCl 60 mg 09/28/19 09:00 09/29/19 09:07 Prozac PO 60 mg DAILY NIALL Administration Fluticasone Propionate 1 spray 09/27/19 21:00 09/29/19 09:08 Flonase 0.05% Nasal [place] NASAL 1 spray Q12HR NIALL Administration Furosemide 40 mg 09/27/19 16:50 09/27/19 18:42 Lasix Tablet PO 40 mg TuFr@0900 NIALL Administration Glucagon 1 mg 09/27/19 16:41 Glucagon For Inj IM PRN PRN Hypoglycemia Protocol Glucose 15 gm 09/27/19 16:41 Glutose 15 PO PRN PRN Hypoglycemia Protocol Lactated Ringer's 1,000 mls @ 125 mls/hr 09/27/19 13:20 09/29/19 06:06 Lr - Lactated Ringers Iv IV CONT 125 mls/hr .Q8H NIALL Administration Vancomycin HCl 1,250 mg in 250 mls @ 200 mls/hr 09/27/19 14:00 09/29/19 01:43 Vancomycin 1,250 Mg/D5w 250 Ml IVPB 200 mls/hr Q36H NIALL Administration Dextrose 1,000 mls @ 100 mls/hr 09/27/19 16:41 Dextrose 5% 1,000 Ml IVPB PRN PRN Hypoglycemia Protocol Imipenem/Cilastatin Sodium 250 100 mls @ 300 mls/hr 09/27/19 22:00 09/29/19 07:05 mg/ Dextrose IVPB Infused Q8HR NIALL Infusion Insulin Aspart 2 - 5 units 09/27/19 17:00 09/29/19 08:45 Novolog SUB-Q Not Given TIDWM NIALL Pro
[2019-09-29] MEDS: IMIPENEM/CILASTATIN SODIUM 250 MG in DEXTROSE 5% 100 ML 100 MG IVPB ×2 (14:21→21:41)
--- NOTE | 2019-09-29 15:40 | WPDANESEPP ---
Anes - Eval Pre Procedure Procedure: toe amp Date/Time: 09/29/19 15:40 Surgeon: mode Pre Op Diagnosis: osteomyelitis/possible aspiration Patient Data Age: 73 Gender: F Height: 1.6 m Weight: 59.8 kg Last Vital Signs Temp 36.7 C 09/29/19 12:05 Pulse 71 09/29/19 12:05 Resp 16 09/29/19 12:05 BP 111/69 09/29/19 12:05 Pulse Ox 95 09/29/19 12:05 Allergies Allergy/AdvReac Type Severity Reaction Status Date / Time rosiglitazone Allergy Severe HIVES/RASH Verified 09/27/19 11:10 celecoxib Allergy Mild Hives Verified 09/27/19 11:10 iodine Allergy Mild Hives Verified 09/27/19 11:10 lidocaine Allergy Mild preserve Verified 09/27/19 11:10 free only shellfish derived Allergy Mild Hives Verified 09/27/19 11:10 Sulfa (Sulfonamide Allergy Mild Hives Verified 09/27/19 11:10 Antibiotics) zinc Allergy Mild hives Verified 09/27/19 11:10 adhesive tape Allergy Unknown Hives / Verified 09/27/19 11:10 Red Face zinc oxide Allergy Unknown Rash Verified 09/27/19 11:10 lisinopril AdvReac Unknown ITCHING/LIGHT Verified 09/27/19 11:10 HEADED DIZZY Contrast Media Allergy Unknown Rash Uncoded 07/03/19 11:12 Home Medications Medication Instructions Recorded Confirmed Type Lactobacillus acidophilus 2,000 mmu cells PO DAILY 07/02/19 09/27/19 History [Probiotic Acidophilus] albuterol sulfate [Proventil HFA] 2 puff INHALATION Q4HWA PRN 07/02/19 09/27/19 History alendronate 70 mg PO WEEKLY 07/02/19 09/27/19 History budesonide [Pulmicort] 0.25 mg INHALATION BID PRN 07/02/19 09/27/19 History deutetrabenazine [Austedo] 12 mg PO BID 07/02/19 09/27/19 History fluoxetine 60 mg PO DAILY 07/02/19 09/27/19 History fluticasone propionate 1 spray INTRANASAL BID 07/02/19 09/27/19 History furosemide 40 mg PO 2XW 07/02/19 09/27/19 History ipratropium-albuterol 3 ml INHALATION QID PRN 07/02/19 09/27/19 History levothyroxine 100 mcg PO DAILY 07/02/19 09/27/19 History potassium chloride 10 meq PO DAILY 07/02/19 09/27/19 History vitamin E 400 unit PO WEEKLY 07/02/19 09/27/19 History apixaban 5 mg tablet 5 mg PO BID #180 tablet 07/23/19 09/27/19 Rx atorvastatin 10 mg tablet 10 mg PO DAILY #90 tablet 07/23/19 09/27/19 Rx magnesium oxide 400 mg (241.3 mg 400 mg PO DAILY #90 tablet 07/23/19 09/27/19 Rx magnesium) tablet spironolactone 25 mg tablet 25 mg PO DAILY #30 tablet 07/25/19 09/27/19 Rx famotidine 20 mg tablet 20 mg PO BID #180 tablet 08/19/19 09/27/19 Rx trazodone 50 mg tablet 50 mg PO HS #90 tablet 09/03/19 09/27/19 Rx clindamycin HCl 300 mg PO Q8H 09/27/19 09/27/19 History doxycycline hyclate 100 mg PO Q12H 09/27/19 09/27/19 History Laboratory Tests 09/28/19 09/28/19 09/29/19 17:02 21:12 05:04 WBC 9.4 K/mm3 K/mm3 (4.5-10.0) RBC 3.46 M/mm3 L M/mm3 (4.2-5.4) Hgb 9.3 g/dL L g/dL (12.0-15.0) Hct 30.4 % L % (37.0-47.0) MCV 87.9 fl fl (80-100) MCH 26.9 pg pg (26-34) MCHC 30.6 g/dl L g/dl (32-36) RDW 13.0 % % (11.5-14.5) Plt Count 184 k/mm3 k/mm3 (150-375) MPV 10.7 fl H fl (7.4-10.4) Sodium Potassium Chloride Carbon Dioxide BUN Creatinine Estim Creat Clear Calc Estimated GFR Glucose POC Capillary Glucose 131 mg/dl H mg/dl 126 mg/dl H mg/dl (65-105) (65-105) Calcium Magnesium 09/29/19 09/29/19 09/29/19 05:04 08:09 12:10 WBC RBC Hgb Hct MCV MCH MCHC RDW Plt Count MPV Sodium 135 mmol/L L mmol/L (137-145) Potassium 3.7 mmol/L mmol/L (3.4-5.0) Chloride 94 mmol/L L mmol/L (98-107) Carbon Dioxide 30 mmol/L mmol/L (22-30) BUN 16 mg/dL mg/dL (7-17) Creatinine 1.00 mg/d
[2019-09-29 18:11] LABS: Glucose Point of Care 98 (65-105)
[2019-09-29] MEDS: ONDANSETRON INJ 4 MG/2 ML VIAL IV PUSH (18:53)
[2019-09-29] MEDS: ENOXAPARIN 60 MG/0.6 ML SYRINGE SUB-Q (21:41)
[2019-09-29] MEDS: TRAZODONE HCL 50 MG TABLET PO (21:42)
[2019-09-29 21:59] LABS: Glucose Point of Care 123 (65-105)
[2019-09-30] VITALS (12 sets, daily range): BP systolic 123–157; BP diastolic 66–89; PULSE 48–65; RESP 14–20; TEMP 36.4–36.8; O2SAT 95–100
[2019-09-30] MEDS: LACTATED RINGERS 1,000 ML 125 ML IV CONT (00:09)
[2019-09-30] MEDS: IMIPENEM/CILASTATIN SODIUM 250 MG in DEXTROSE 5% 100 ML 100 MG IVPB (05:28)
[2019-09-30 06:02] LABS: Hematocrit 31.5 % (37.0-47.0); Hemoglobin 9.7 g/dL (12.0-15.0); Mean Corpuscular HGB Conc 30.8 g/dl (32-36); Mean Corpuscular Hemoglobin 27.2 pg (26-34); Mean Corpuscular Volume 88.5 fl (80-100); Mean Platelet Volume 10.5 fl (7.4-10.4); Platelet Count Result 172 k/mm3 (150-375); Red Blood Count 3.56 M/mm3 (4.2-5.4); Red Cell Distribution Width 12.7 % (11.5-14.5); White Blood Count 7.6 K/mm3 (4.5-10.0)
[2019-09-30 06:10] LABS: Blood Urea Nitrogen 17 mg/dL (7-17); Calcium 8.1 mg/dL (8.4-10.2); Carbon Dioxide 33 mmol/L (22-30); Chloride 98 mmol/L (98-107); Estimated CRCL calculation 32 ml/min; Estimated Glomerular Filt Rate 44; Glucose 116 mg/dL (65-105); Magnesium 1.7 mg/dL (1.6-2.3); Potassium 3.8 mmol/L (3.4-5.0); Sodium 136 mmol/L (137-145)
[2019-09-30] MEDS: ALENDRONATE SODIUM 70 MG TABLET PO (06:44)
[2019-09-30] MEDS: LEVOTHYROXINE SODIUM 100 MCG TABLET PO (06:44)
[2019-09-30] MEDS: FLUOXETINE HCL 20 MG CAP 60 MG PO (08:25)
[2019-09-30] MEDS: ACIDOPHILUS/BULGARICUS CHEWABLE TABLET 1 TABLET PO (08:25)
[2019-09-30] MEDS: FAMOTIDINE 20 MG TABLET PO ×2 (08:25→20:10)
[2019-09-30] MEDS: SPIRONOLACTONE 25 MG TABLET PO (08:27)
[2019-09-30] MEDS: ATORVASTATIN 10 MG TABLET PO (08:28)
[2019-09-30] MEDS: FLUTICASONE PROPIONATE 0.05% NA SPR 16 GM BTL (*BKC) 1 SPRAY NASAL ×2 (08:29→20:10)
[2019-09-30] MEDS: MUPIROCIN 2% OINT 22 GM TUBE 1 APPLIC TOPICAL (08:35)
--- NOTE | 2019-09-30 09:41 | PCWOUND ---
WOCN NOTE Received referral to see patient for tow wound. patient is being followed by Dr Mckee and going to surgery today.
[2019-09-30] MEDS: MAGNESIUM OXIDE 400 MG TABLET PO (11:11)
[2019-09-30 12:11] LABS: Glucose Point of Care 91 (65-105)
--- NOTE | 2019-09-30 12:48 | WPDHPUPDATE1 ---
History and Physical Update Update Date/Time: 09/30/19 12:48 History and Physical has been reviewed, including an updated exam of the patient. There are NO changes in the patient's condition. Risks, benefits, and alternatives have been discussed and questions answered. Patient agrees to proceed with procedure. Consented for third digit amputation left foot.
[2019-09-30] MEDS: LACTATED RINGERS 1,000 ML 30 ML IV CONT ×2 (13:14→14:18)
--- NOTE | 2019-09-30 13:22 | WPDANESEPPF ---
Anes - Initial Pre Proc Eval Procedure: Operation Date: 09/30/19 13:00 Proposed Procedures p Amputation of third digit left foot - Sanford Mckee JR, MD Date/Time: 09/30/19 13:22 Surgeon: Estela Moore MD Pre Op Diagnosis: osteomyelitis/possible aspiration Patient Data Age: 73 Gender: F Height: 5 ft 3 in Weight: 61.8 kg Last Vital Signs Temp 97.6 F 09/30/19 13:04 Pulse 54 L 09/30/19 13:04 Resp 20 09/30/19 13:04 BP 146/72 H 09/30/19 13:04 Pulse Ox 97 09/30/19 13:04 Allergies Allergy/AdvReac Type Severity Reaction Status Date / Time rosiglitazone Allergy Severe HIVES/RASH Verified 09/27/19 11:10 celecoxib Allergy Mild Hives Verified 09/27/19 11:10 iodine Allergy Mild Hives Verified 09/27/19 11:10 lidocaine Allergy Mild preserve Verified 09/27/19 11:10 free only shellfish derived Allergy Mild Hives Verified 09/27/19 11:10 Sulfa (Sulfonamide Allergy Mild Hives Verified 09/27/19 11:10 Antibiotics) zinc Allergy Mild hives Verified 09/27/19 11:10 adhesive tape Allergy Unknown Hives / Verified 09/27/19 11:10 Red Face zinc oxide Allergy Unknown Rash Verified 09/27/19 11:10 lisinopril AdvReac Unknown ITCHING/LIGHT Verified 09/27/19 11:10 HEADED DIZZY Contrast Media Allergy Unknown Rash Uncoded 07/03/19 11:12 Home Medications Medication Instructions Recorded Confirmed Type Lactobacillus acidophilus 2,000 mmu cells PO DAILY 07/02/19 09/27/19 History [Probiotic Acidophilus] albuterol sulfate [Proventil HFA] 2 puff INHALATION Q4HWA PRN 07/02/19 09/27/19 History alendronate 70 mg PO WEEKLY 07/02/19 09/27/19 History budesonide [Pulmicort] 0.25 mg INHALATION BID PRN 07/02/19 09/27/19 History deutetrabenazine [Austedo] 12 mg PO BID 07/02/19 09/27/19 History fluoxetine 60 mg PO DAILY 07/02/19 09/27/19 History fluticasone propionate 1 spray INTRANASAL BID 07/02/19 09/27/19 History furosemide 40 mg PO 2XW 07/02/19 09/27/19 History ipratropium-albuterol 3 ml INHALATION QID PRN 07/02/19 09/27/19 History levothyroxine 100 mcg PO DAILY 07/02/19 09/27/19 History potassium chloride 10 meq PO DAILY 07/02/19 09/27/19 History vitamin E 400 unit PO WEEKLY 07/02/19 09/27/19 History apixaban 5 mg tablet 5 mg PO BID #180 tablet 07/23/19 09/27/19 Rx atorvastatin 10 mg tablet 10 mg PO DAILY #90 tablet 07/23/19 09/27/19 Rx magnesium oxide 400 mg (241.3 mg 400 mg PO DAILY #90 tablet 07/23/19 09/27/19 Rx magnesium) tablet spironolactone 25 mg tablet 25 mg PO DAILY #30 tablet 07/25/19 09/27/19 Rx famotidine 20 mg tablet 20 mg PO BID #180 tablet 08/19/19 09/27/19 Rx trazodone 50 mg tablet 50 mg PO HS #90 tablet 09/03/19 09/27/19 Rx clindamycin HCl 300 mg PO Q8H 09/27/19 09/27/19 History doxycycline hyclate 100 mg PO Q12H 09/27/19 09/27/19 History Laboratory Tests 09/29/19 09/29/19 09/30/19 17:47 21:52 05:50 WBC 7.6 K/mm3 K/mm3 (4.5-10.0) RBC 3.56 M/mm3 L M/mm3 (4.2-5.4) Hgb 9.7 g/dL L g/dL (12.0-15.0) Hct 31.5 % L % (37.0-47.0) MCV 88.5 fl fl (80-100) MCH 27.2 pg pg (26-34) MCHC 30.8 g/dl L g/dl (32-36) RDW 12.7 % % (11.5-14.5) Plt Count 172 k/mm3 k/mm3 (150-375) MPV 10.5 fl H fl (7.4-10.4) Sodium Potassium Chloride Carbon Dioxide BUN Creatinine Estim Creat Clear Calc Estimated GFR Glucose POC Capillary Glucose 98 mg/dl mg/dl 123 mg/dl H mg/dl (65-105) (65-105) Calcium Magnesium 09/30/19 09/30/19 05:50 11:15 WBC RBC Hgb Hct MCV MCH MCHC RDW Plt Count MPV Sodium 136 mmol/L L mmol/L (137-145) Potassium 3.8 mmol/L mmol/L (3.4-5.0) Chloride 98 mmol/L mmol/L (98-107) Carbon Dioxide 33 mmol/L H
--- NOTE | 2019-09-30 14:06 | PCOTNOTE ---
Patient unavailable to be seen for OT this PM, in procedure to remove third digit from foot at this time. Will continue POC.
--- NOTE | 2019-09-30 14:10 | SUR.OPER ---
speciman given to mendez in lab
--- NOTE | 2019-09-30 14:47 | PM.OP ---
Procedure Note - Brief Procedure Note - Brief Date of procedure: 09/30/19 Pre-op diagnosis: osteomyelitis/possible aspiration Post-op diagnosis: same Procedure performed: 3rd digit amputation left foot Anesthesia: MAC and local Surgeon: Sanford Mckee JR, DPM Estimated blood loss (mL): 30 Complications: No immediate complications Condition: stable
[2019-09-30 14:57] LABS: Glucose Point of Care 86 (65-105)
[2019-09-30] MEDS: IMIPENEM/CILASTATIN SODIUM 250 MG in DEXTROSE 5% 100 ML 125 MG IVPB (16:13)
--- NOTE | 2019-09-30 17:18 | PM.IMPN ---
Progress Note: A&P Assessment and Plan (1) Osteomyelitis: Qualifiers: Laterality: left Osteomyelitis location: foot Osteomyelitis type: unspecified type Qualified Code(s): M86.9 - Osteomyelitis, unspecified Code(s): M86.9 - Osteomyelitis, unspecified Status: Chronic Assessment and Plan: Osteomyelitis of the left 3rd digit. Appreciate help from Dr. Mckee. S/P amputation left 3rd toe this afternoon. Discussed with Dr. Mckee. Based on findings during surgery, will not have ID see at this time as consult no longer necessary. Remains on IV vancomycin and imipenem. Plan for oral antibiotics at discharge. Continue PT/OT. Anticipate need for SNF at discharge. Awaiting authorization. Should be able to discharge once placement secured. (2) Shortness of breath: Code(s): R06.02 - Shortness of breath Status: Acute Assessment and Plan: Had episode on the morning of 09/28/2019 but no further episodes. Was seen by speech therapy for bedside swallow on 09/28/2019 with recommendation for minced moist diet with thin liquids. Longstanding issue. No noted issues with swallowing. Placed on oxygen after surgery but was not requiring before and anticipating weaning off. Will monitor. (3) DM2 (diabetes mellitus, type 2): Qualifiers: Chronic kidney disease stage: stage 3 (moderate) Diabetes mellitus complication detail: with chronic kidney disease Diabetes mellitus complication status: with kidney complications Diabetes mellitus fdc insulin use: without fdc use Qualified Code(s): E11.22 - Type 2 diabetes mellitus with diabetic chronic kidney disease; N18.3 - Chronic kidney disease, stage 3 (moderate) Code(s): E11.9 - Type 2 diabetes mellitus without complications Status: Chronic Assessment and Plan: Not on medication at home. Glucose reviewed on 09/30/2019 and remains controlled. Hemoglobin A1c 6.7. Will continue to monitor. Sliding scale insulin available if needed. (4) CKD (chronic kidney disease): Qualifiers: Chronic kidney disease stage: stage 3 (moderate) Qualified Code(s): N18.3 - Chronic kidney disease, stage 3 (moderate) Code(s): N18.9 - Chronic kidney disease, unspecified Status: Chronic Assessment and Plan: Creatinine stable at 1.20 today. At baseline. Will monitor. (5) HTN (hypertension) with goal to be determined: Code(s): I10 - Essential (primary) hypertension Status: Chronic Assessment and Plan: Blood pressure reviewed on 09/30/2019 and stable. Will continue to monitor on home spironolactone and furosemide. (6) Hyperlipidemia: Qualifiers: Hyperlipidemia type: unspecified Qualified Code(s): E78.5 - Hyperlipidemia, unspecified Code(s): E78.5 - Hyperlipidemia, unspecified Status: Chronic Assessment and Plan: Continue home atorvastatin. LFTs normal. (7) Iron deficiency anemia: Qualifiers: Iron deficiency anemia type: unspecified iron deficiency Qualified Code(s): D50.9 - Iron deficiency anemia, unspecified Code(s): D50.9 - Iron deficiency anemia, unspecified Status: Chronic Assessment and Plan: Hemoglobin at 9.7 today and stable. Will continue to monitor. (8) Hypothyroidism: Qualifiers: Hypothyroidism type: unspecified Qualified Code(s): E03.9 - Hypothyroidism, unspecified Code(s): E03.9 - Hypothyroidism, unspecified Status: Chronic Assessment and Plan: TSH slightly low but free T4 normal. Will continue home levothyroxine. (9) Dementia: Qualifiers: Dementia behavioral disturbance: without behavioral disturbance Dementia type: unspecified type Qualified Code(s): F03.90 - Unspecified dementia without behavioral disturbance Code(s): F03.90 - Unspecified dementia without behavioral disturbance Status: Chronic Assessment and Plan: Not o
[2019-09-30] MEDS: ENOXAPARIN 60 MG/0.6 ML SYRINGE SUB-Q ×2 (18:32→20:10)
--- NOTE | 2019-09-30 18:47 | OP_ITS ---
DATE OF PROCEDURE: 09/30/2019 PREOPERATIVE DIAGNOSIS: Chronic osteomyelitis of the left 3rd digit. POSTOPERATIVE DIAGNOSIS: Chronic osteomyelitis of the left 3rd digit. PROCEDURE: 3rd digit amputation, left foot. PATHOLOGY: 3rd digit left foot sent for gross and histopathology. ANESTHESIA: MAC with local. HEMOSTASIS: Pneumatic ankle tourniquet at 250 mmHg. ESTIMATED BLOOD LOSS: 20 cc. MATERIALS: 4-0 Vicryl and 4-0 Prolene. INJECTABLES: 10 cc of 0.5% Marcaine plain injected preoperatively. COMPLICATIONS: None. PROCEDURE IN DETAIL: Under mild sedation, the patient was brought to the operating room and placed on the operating table in the supine position. Pneumatic ankle tourniquet was placed about the patient's left ankle. Following IV sedation, local anesthesia obtained about the left foot utilizing 10 cc of 0.5% Marcaine plain. The foot was then scrubbed, prepped, and draped in the usual aseptic manner. An Esmarch bandage was then used to examine the patient's left foot and pneumatic ankle tourniquet was inflated. A racket style incision was made along the base of the left 3rd digit. The incision was continued deep down through subcutaneous tissues using sharp and blunt dissection. All bleeders were attempted to be cauterized as necessary. Hemostasis was unable to be achieved due to calcification of the vessel, so the tourniquet was dropped after 2 minutes and had been elevated. After the tourniquet was released, there was less bleeding present at the operative site. The incision was continued deep down to the level of the metatarsophalangeal joint where the 2nd digit was disarticulated. The wound site was then flushed with copious amounts of sterile saline. The 3rd digit was sent for gross and histopathology. A deep wound culture swab was taken from the ulceration present to the distal 3rd digit. There was no remaining nonviable tissue present along the amputation site. The wound site was flushed with copious amounts of sterile saline. All bleeders were cauterized as necessary. At this point, the subcutaneous structures were reapproximated and coapted utilizing 4-0 Vicryl. Next, the skin was reapproximated and coapted utilizing 4-0 Prolene in simple interrupted suture technique. Upon completion of the procedure, the incision was dressed with Adaptic, 4x4s, Kerlix, and Coban. The pneumatic postop shoe was then applied to the left foot. The patient did very well with the procedure and anesthesia. She was transferred to the recovery room with vital signs stable and vascular status intact to all toes of the left foot. Following a period of postoperative monitoring, the patient will be admitted back to the floor under the following instructions: 1. Keep the dressing clean, dry, and intact. 2. The patient to be strictly on bed rest with bathroom privileges. 3. The patient should elevate the left foot when at rest. 4. The patient should use surgical shoe at all times with ambulating. 5. The patient should contact. I will follow up with the patient tomorrow morning to change the dressing. Hydromorphone was prescribed through IV to help with postoperative pain q.3 hours as needed for severe pain greater than 6/10. D I MT: Roxana
[2019-09-30 19:54] LABS: Vancomycin Trough 40.2 ug/mL (10.0-20.0)
[2019-09-30] MEDS: TRAZODONE HCL 50 MG TABLET PO (20:10)
[2019-09-30] MEDS: ONDANSETRON INJ 4 MG/2 ML VIAL IV PUSH (20:24)
[2019-09-30 21:19] LABS: Glucose Point of Care 122 (65-105)
[2019-10-01] MEDS: LACTATED RINGERS 1,000 ML 125 ML IV CONT ×2 (04:27→13:14)
[2019-10-01 06:00] VITALS: BP 142/66; PULSE 51; RESP 18; TEMP 36.3; O2SAT 100
[2019-10-01] MEDS: LEVOTHYROXINE SODIUM 100 MCG TABLET PO (06:17)
[2019-10-01 06:34] LABS: Hematocrit 31.6 % (37.0-47.0); Hemoglobin 9.8 g/dL (12.0-15.0); Mean Corpuscular Hemoglobin 27.1 pg (26-34); Mean Corpuscular Volume 87.3 fl (80-100); Mean Platelet Volume 10.6 fl (7.4-10.4); Platelet Count Result 176 k/mm3 (150-375); Red Blood Count 3.62 M/mm3 (4.2-5.4); Red Cell Distribution Width 12.5 % (11.5-14.5); White Blood Count 7.9 K/mm3 (4.5-10.0)
[2019-10-01 06:53] LABS: Blood Urea Nitrogen 16 mg/dL (7-17); Calcium 8.1 mg/dL (8.4-10.2); Carbon Dioxide 31 mmol/L (22-30); Chloride 97 mmol/L (98-107); Estimated CRCL calculation 46 ml/min; Estimated Glomerular Filt Rate > 60; Glucose 90 mg/dL (65-105); Sodium 137 mmol/L (137-145)
[2019-10-01] MEDS: IMIPENEM/CILASTATIN SODIUM 250 MG in DEXTROSE 5% 100 ML 300 MG IVPB ×2 (07:00→14:31)
[2019-10-01 08:48] LABS: Glucose Point of Care 101 (65-105)
[2019-10-01] MEDS: FLUOXETINE HCL 20 MG CAP 60 MG PO (09:24)
[2019-10-01] MEDS: ATORVASTATIN 10 MG TABLET PO (09:26)
[2019-10-01] MEDS: ACIDOPHILUS/BULGARICUS CHEWABLE TABLET 1 TABLET PO (09:26)
[2019-10-01] MEDS: FUROSEMIDE 40 MG TABLET PO (09:26)
[2019-10-01] MEDS: FAMOTIDINE 20 MG TABLET PO (09:28)
[2019-10-01] MEDS: MAGNESIUM OXIDE 400 MG TABLET PO (09:28)
[2019-10-01] MEDS: VITAMIN E 400 UNIT CAPSULE PO (09:28)
[2019-10-01] MEDS: SPIRONOLACTONE 25 MG TABLET PO (09:29)
[2019-10-01] MEDS: FLUTICASONE PROPIONATE 0.05% NA SPR 16 GM BTL (*BKC) 1 SPRAY NASAL (09:30)
[2019-10-01] MEDS: ENOXAPARIN 60 MG/0.6 ML SYRINGE SUB-Q (09:30)
--- NOTE | 2019-10-01 09:53 | WPDANESPN ---
Anes - Prog Note Post-Op Date/Time: 10/01/19 09:53 Cardiovascular status: normal Respiratory status: normal Airway patency: baseline Mental status: baseline Post-Op hydration status: normal Vital Signs: Last Vital Signs Temp 36.3 C L 10/01/19 06:00 Pulse 51 L 10/01/19 06:00 Resp 18 10/01/19 06:00 BP 142/66 H 10/01/19 06:00 Pulse Ox 100 10/01/19 06:00 I/O: Intake & Output 09/30/19 10/01/19 10/01/19 23:59 07:59 15:59 Intake Total 450 350 Output Total 1000 200 Balance -550 150 Laboratory Tests 10/01/19 06:05 10/01/19 06:05 09/30/19 09/30/19 09/30/19 11:15 14:55 17:40 WBC RBC Hgb Hct MCV MCH MCHC RDW Plt Count MPV Sodium Potassium Chloride Carbon Dioxide BUN Creatinine Estim Creat Clear Calc Estimated GFR Glucose POC Capillary Glucose 91 86 Calcium Vancomycin Trough 40.2 H* 09/30/19 10/01/19 10/01/19 20:15 06:05 06:05 WBC 7.9 RBC 3.62 L Hgb 9.8 L Hct 31.6 L MCV 87.3 MCH 27.1 MCHC 31.0 L RDW 12.5 Plt Count 176 MPV 10.6 H Sodium 137 Potassium 4.0 Chloride 97 L Carbon Dioxide 31 H BUN 16 Creatinine 0.80 Estim Creat Clear Calc 46 Estimated GFR > 60 Glucose 90 POC Capillary Glucose 122 H Calcium 8.1 L Vancomycin Trough 10/01/19 08:42 WBC RBC Hgb Hct MCV MCH MCHC RDW Plt Count MPV Sodium Potassium Chloride Carbon Dioxide BUN Creatinine Estim Creat Clear Calc Estimated GFR Glucose POC Capillary Glucose 101 Calcium Vancomycin Trough Post-procedural complaints: none Patient Feedback: Patient satisfied with anesthetic care.
--- NOTE | 2019-10-01 12:58 | WPDPN ---
Progress Note: A&P Additional Plan -one day s/p amputation of the left 3rd digit Stable for d/c per podiatry standpoint -Tramadol 50mg PRN Moderate to severe pain -Already has rx for Clindamycin 300mg to be taken one PO q8h for 10 days. Will monitor intra-op cultures as outpatient and adjust abx as needed. -May initiate protected weight bearing with surgical shoe -I did change surgical dressing, incision well coapted with No SOI. Leave dressing intact should not be changed at [facility], Dr. Mckee will change dressing next Monday October 07, 2019. Appreciate hospitalist help with case, Dr. Mckee [phone] Exam Extrem: General: amputation noted Other: Amputation site to left 3rd digit is well coapted. No edema/ erythema. Objective Data Vital Signs Vital Signs: Vital Signs - 24 hr 09/30/19 13:04 09/30/19 14:18 09/30/19 14:30 Temperature 36.4 C 36.4 C L Pulse Rate 54 L 65 48 L Respiratory Rate 20 18 20 Blood Pressure 146/72 H 123/74 149/74 H Pulse Oximetry 97 99 100 09/30/19 14:45 09/30/19 15:00 09/30/19 15:15 Temperature Pulse Rate 58 L 50 L 50 L Respiratory Rate 20 20 15 Blood Pressure 151/75 H 155/74 H 153/76 H Pulse Oximetry 100 100 100 09/30/19 15:30 09/30/19 15:45 09/30/19 16:00 Temperature 36.6 C Pulse Rate 50 L 52 L 58 L Respiratory Rate 14 15 14 Blood Pressure 157/72 H 155/74 H 145/89 H Pulse Oximetry 100 100 100 09/30/19 22:00 10/01/19 06:00 Temperature 36.8 C 36.3 C L Pulse Rate 64 51 L Respiratory Rate 18 18 Blood Pressure 124/66 142/66 H Pulse Oximetry 100 100 Intake/Output Intake/Output: Intake & Output 09/28/19 09/29/19 09/30/19 10/01/19 23:59 23:59 23:59 23:59 Intake Total 2900 4648 1790 470 Output Total 717 634 4908 200 Balance 2300 3698 790 270 Meds/Results Medications: Active Medications Generic Name Dose Route Start Last Admin Trade Name Freq PRN Reason Stop Dose Admin Albuterol 2.5 mg 09/27/19 15:46 Albuterol Sulf Neb 2.5mg/0.5ml INHALATION Q4HRT PRN Shortness Of Breath Albuterol 2 puff 09/30/19 14:43 Proventil Hfa INHALATION Q4HWA PRN Wheezing Alendronate Sodium 70 mg 09/30/19 06:30 09/30/19 06:44 Fosamax PO 70 mg Mo@0630 NIALL Administration Atorvastatin Calcium 10 mg 09/28/19 09:00 10/01/19 09:26 Lipitor PO 10 mg DAILY NIALL Administration Budesonide 0.25 mg 09/27/19 16:50 Pulmicort Respule Neb INHALATION Q12HRT PRN Wheezing Dextrose 12.5 gm 09/27/19 16:41 Dextrose 50% Syringe IV PUSH PRN PRN Hypoglycemia Protocol Diphenhydramine HCl 25 mg 09/27/19 15:46 Benadryl Inj IV PUSH Q4H PRN Itching Enoxaparin Sodium 60 mg 09/29/19 21:00 10/01/19 09:30 Lovenox SUB-Q 60 mg Q12HR NIALL Administration Famotidine 20 mg 09/27/19 21:00 10/01/19 09:28 Pepcid PO 20 mg Q12HR NIALL Administration Fentanyl Citrate 25 mcg 09/30/19 13:24 Sublimaze IV PUSH Q2M PRN Pain Fluoxetine HCl 60 mg 09/28/19 09:00 10/01/19 09:24 Prozac PO 60 mg DAILY NIALL Administration Fluticasone Propionate 1 spray 09/27/19 21:00 10/01/19 09:30 Flonase 0.05% Nasal [place] NASAL 1 spray Q12HR NIALL Administration Furosemide 40 mg 09/27/19 16:50 10/01/19 09:26 Lasix Tablet PO 40 mg TuFr@0900 NIALL Administration Glucagon 1 mg 09/27/19 16:41 Glucagon For Inj IM PRN PRN Hypoglycemia Protocol Glucose 15 gm 09/27/19 16:41 Glutose 15 PO PRN PRN Hypoglycemia Protocol Hydromorphone HCl 0.5 mg 09/30/19 14:37 Dilaudid Inj IV PUSH Q3H PRN Pain Rated 6 or Greater Vancomycin HCl 1,250 mg in 250 mls @ 200 mls/hr 09/27/19 14:00 09/30/19 16:20 Vancomycin 1,250 Mg/D5w 250 Ml IVPB Infused Q36H NIALL Infusion Dextrose 1,000 mls @ 100 mls/hr 09/27/19 16:41 Dextrose 5% 1,000 Ml IVPB PRN PRN Hypoglycemia Protocol Imipenem/Cilastatin Sod[place]
[2019-10-01 13:15] LABS: Glucose Point of Care 119 (65-105)
--- NOTE | 2019-10-01 13:38 | PM.DS ---
DS: Diagnosis Admitting Diagnosis Admitting Diagnosis: Osteomyelitis, unspecified Discharge Diagnosis (1) Osteomyelitis: Qualifiers: Laterality: left Osteomyelitis location: foot Osteomyelitis type: unspecified type Qualified Code(s): M86.9 - Osteomyelitis, unspecified Code(s): M86.9 - Osteomyelitis, unspecified Status: Chronic Assessment and Plan: Acute on chronic osteomyelitis of the left 3rd digit. Dr. Mckee was consulted. Patient started on Vancomycin and Primaxin. She was seen by podiatric surgery who recommended amputation. Patient /family agreeed and patient underwent amputation left 3rd toe on 09/30/19. Discussed with Dr. Mckee who felt nerisn could be discharged to SNF and to resume her Clindamycin for another 10 days. (2) Shortness of breath: Code(s): R06.02 - Shortness of breath Status: Acute Assessment and Plan: Had episode on the morning of 09/28/2019 but no further episodes. Was seen by speech therapy for bedside swallow on 09/28/2019 with recommendation for minced moist diet with thin liquids. This appears to be a longstanding issue. No noted issues with swallowing. Not on O2 at home. She is on fpc anticoagulation already so doubt PE. CXR showing some scarring and dtr states patient has hx of recurrent PNAs. She is currently on broad specturm abx. Not on O2 at home. Wean O2 as tolerated. (3) DM2 (diabetes mellitus, type 2): Qualifiers: Chronic kidney disease stage: stage 3 (moderate) Diabetes mellitus complication detail: with chronic kidney disease Diabetes mellitus complication status: with kidney complications Diabetes mellitus tank terminal gauger insulin use: without detention use Qualified Code(s): E11.22 - Type 2 diabetes mellitus with diabetic chronic kidney disease; N18.3 - Chronic kidney disease, stage 3 (moderate) Code(s): E11.9 - Type 2 diabetes mellitus without complications Status: Chronic Assessment and Plan: A1c 6.7. Not on medication at home. Glucose monitored closely and it remains well controlled. Continue diabetic diet. (4) CKD (chronic kidney disease): Qualifiers: Chronic kidney disease stage: stage 3 (moderate) Qualified Code(s): N18.3 - Chronic kidney disease, stage 3 (moderate) Code(s): N18.9 - Chronic kidney disease, unspecified Status: Chronic Assessment and Plan: Cr runs 0.8-1.3 here. Renal function at baseline. (5) HTN (hypertension) with goal to be determined: Code(s): I10 - Essential (primary) hypertension Status: Chronic Assessment and Plan: Blood pressure monitored and has remained mostly well controlled. We continued home spironolactone and furosemide. (6) Hyperlipidemia: Qualifiers: Hyperlipidemia type: unspecified Qualified Code(s): E78.5 - Hyperlipidemia, unspecified Code(s): E78.5 - Hyperlipidemia, unspecified Status: Chronic Assessment and Plan: LFTs normal. We contineud home atorvastatin. (7) Iron deficiency anemia: Qualifiers: Iron deficiency anemia type: unspecified iron deficiency Qualified Code(s): D50.9 - Iron deficiency anemia, unspecified Code(s): D50.9 - Iron deficiency anemia, unspecified Status: Chronic Assessment and Plan: Hgb 11.3 on admission and has dropped to 9 range but stable past 3 days. Could be dilutional. No obvious acute blood loss. (8) Hypothyroidism: Qualifiers: Hypothyroidism type: unspecified Qualified Code(s): E03.9 - Hypothyroidism, unspecified Code(s): E03.9 - Hypothyroidism, unspecified Status: Chronic Assessment and Plan: TSH slightly low but free T4 normal. Will continue current home levothyroxine dose. (9) Dementia: Qualifiers: Dementia behavioral disturbance: without behavioral disturbance Dementia type: unspecified type Qualified Co
[2019-10-01 14:00] VITALS: BP 117/55; PULSE 67; RESP 18; TEMP 36.8; O2SAT 99
--- NOTE | 2019-10-04 13:36 | PC.NURSE ---
Blood cx was negative. Dr. Tommie gallo.
== END 2019-10-01 16:30 | DRG 617 ==
LOC: ANHED 13:25 → ANH2MED 13:32 → ANHIMU 09-28 00:40 → ANH3MEDSUR 09-30 07:20 → ANHIMU 10-04 10:59
PROVIDERS: Family Medicine; Internal Medicine; Nurse Practitioner; Podiatrist Foot & Ankle Surgery; Admitting Provider Hospitalist; Emergency Provider Emergency Medicine; PCP Family Medicine; Visit Provider Hospitalist
PROC: 0Y6U0Z0 Detachment at Left 3rd Toe, Complete, Open Approach (ICD-10-PCS; principal; 2019-09-30 13:00)
DX: E11.69 Type 2 diabetes mellitus with other specified complication (principal); M86.672 Other chronic osteomyelitis, left ankle and foot; F41.8 Other specified anxiety disorders; E11.22 Type 2 diabetes mellitus with diabetic chronic kidney disease; I12.9 Hypertensive chronic kidney disease with stage 1 through stage 4 chronic kidney disease, or unspecified chronic kidney disease; Z86.718 Personal history of other venous thrombosis and embolism; Z85.850 Personal history of malignant neoplasm of thyroid; E78.5 Hyperlipidemia, unspecified; E89.0 Postprocedural hypothyroidism; Z90.710 Acquired absence of both cervix and uterus; Z96.653 Presence of artificial knee joint, bilateral; Z90.49 Acquired absence of other specified parts of digestive tract; Z98.41 Cataract extraction status, right eye; Z98.42 Cataract extraction status, left eye; Z96.1 Presence of intraocular lens; F03.90 Unspecified dementia, unspecified severity, without behavioral disturbance, psychotic disturbance, mood disturbance, and anxiety; D50.9 Iron deficiency anemia, unspecified; G24.01 Drug induced subacute dyskinesia; Z79.01 Long term (current) use of anticoagulants; N18.3 Chronic kidney disease, stage 3 (moderate); R00.0 Tachycardia, unspecified; R01.1 Cardiac murmur, unspecified; Z98.84 Bariatric surgery status
CPT/HCPCS: 36415; 36600; 71045; 71046; 73660; 78582; 80048; 80053; 80202; 82805; 83036; 83605; 83690; 83735; 84439; 84443; 84480; 84484; 85025; 85027; 85380; 87040; 87070; 87075; 87205; 88305; 88311; 92610; 93005; 94640; 96361; 96365; 96366; 96367; 97110; 97162; 97165; 97530; 99285; A9270; A9540; A9558; G0378; J0743; J1650; J2405; J2704; J3010; J3370; J7120

== ENCOUNTER 2019-10-02 21:11 | Emergency (ER) | payer MEDICARE, SELFPAY ==
--- NOTE | 2019-10-02 21:12 | ED.CPR ---
HPI - CPR General Chief Complaint: Cardiac Arrest/CPR Stated Complaint: unresponsive Time Seen by Provider: 10/02/19 21:12 Source: EMS and RN notes reviewed Mode of arrival: EMS Limitations: clinical condition History of Present Illness HPI narrative: Pt is a 73 y/o female who presents to the ED via EMS with c/o unresponsiveness. According to EMS, the pt was discharged to [facility] earlier today following a toe amputation procedure. They note that PR staff found the pt unresponsive around 8 PM this evening. EMS states that [facility] staff was unsure of how long the pt was unconscious. They note that they arrived to the scene around 20:20 and found the pt in asystole. EMS states that they administered a total of 5 rounds of epinephrine while in route to the ED, and note that the pt briefly regained a weak carotid pulse. They state that the weak pulse soon evaporated. EMS notes that they performed CPR on the pt for roughly 50 minutes. Pt arrived to the ED on a MOY machine. HPI limited due to the pt being unresponsive. MD complaint: found unresponsive Onset (ago): unknown Place: NH/SNF Initial findings in the field: unresponsive and no pulse ROSC in the field: No Associated symptoms: other (unobtainable) Treatments prior to arrival: chest compressions (via MOY machine) and epinephrine mgs # (5) Related Data Home Medications Medication Instructions Recorded Confirmed [place] 12 mg PO BID 07/02/19 09/27/19 Probiotic Acidophilus 2,000 mmu cells PO DAILY 07/02/19 09/27/19 albuterol sulfate [Proventil HFA] 2 puff INHALATION Q4HWA PRN 07/02/19 09/27/19 alendronate 70 mg PO WEEKLY 07/02/19 09/27/19 budesonide [Pulmicort] 0.25 mg INHALATION BID PRN 07/02/19 09/27/19 fluoxetine 60 mg PO DAILY 07/02/19 09/27/19 fluticasone propionate 1 spray INTRANASAL BID 07/02/19 09/27/19 furosemide 40 mg PO 2XW 07/02/19 09/27/19 ipratropium-albuterol 3 ml INHALATION QID PRN 07/02/19 09/27/19 levothyroxine 100 mcg PO DAILY 07/02/19 09/27/19 potassium chloride 10 meq PO DAILY 07/02/19 09/27/19 vitamin E 400 unit PO WEEKLY 07/02/19 09/27/19 clindamycin HCl 300 mg PO Q8H 09/27/19 09/27/19 doxycycline hyclate 100 mg PO Q12H 09/27/19 09/27/19 Allergies Allergy/AdvReac Type Severity Reaction Status Date / Time rosiglitazone Allergy Severe HIVES/RASH Verified 09/27/19 11:10 celecoxib Allergy Mild Hives Verified 09/27/19 11:10 iodine Allergy Mild Hives Verified 09/27/19 11:10 lidocaine Allergy Mild preserve Verified 09/27/19 11:10 free only shellfish derived Allergy Mild Hives Verified 09/27/19 11:10 Sulfa (Sulfonamide Allergy Mild Hives Verified 09/27/19 11:10 Antibiotics) zinc Allergy Mild hives Verified 09/27/19 11:10 adhesive tape Allergy Unknown Hives / Verified 09/27/19 11:10 Red Face zinc oxide Allergy Unknown Rash Verified 09/27/19 11:10 lisinopril AdvReac Unknown ITCHING/LIGHT Verified 09/27/19 11:10 HEADED DIZZY Contrast Media Allergy Unknown Rash Uncoded 07/03/19 11:12 Review of Systems Review of Systems: Narrative: Complete ROS unobtainable due to the pt being unresponsive. [facility] Past Medical History Medical History Anxiety Bacterial lobar pneumonia Bipolar disease, chronic CKD (chronic kidney disease) stage 3 Dementia Depression DM2 (diabetes mellitus, type 2) DVT (deep venous thrombosis) Left leg Esophageal dilatation GERD (gastroesophageal reflux disease) History of kidney stones History of thyroid cancer HTN (hypertension) with goal to be determined Hyperlipidemia Hypothyroidism Secondary to partial thyroidectomy secondary to thyroid cancer Iron deficiency anemia Mitral valve prolapse On home O2 Pneumonia Renal stones Systolic murmur Thyroid ca Surgical History Surgical History H/O abdominal surgery Adhesiolysis H/O bariatric surgery H/O esophagogastroduodenoscopy H/O release of tendon
[2019-10-02 21:14] VITALS: PULSE 0; RESP 0; O2SAT 0
== END 2019-10-03 00:30 | disposition expired ==
PROVIDERS: Emergency Provider Emergency Medicine; PCP Family Medicine
DX: I46.9 Cardiac arrest, cause unspecified (principal); I12.9 Hypertensive chronic kidney disease with stage 1 through stage 4 chronic kidney disease, or unspecified chronic kidney disease; N18.3 Chronic kidney disease, stage 3 (moderate); Z86.718 Personal history of other venous thrombosis and embolism; K21.9 Gastro-esophageal reflux disease without esophagitis; E89.0 Postprocedural hypothyroidism; Z85.850 Personal history of malignant neoplasm of thyroid; D50.9 Iron deficiency anemia, unspecified; Z99.81 Dependence on supplemental oxygen; F41.9 Anxiety disorder, unspecified; F31.9 Bipolar disorder, unspecified; Z87.442 Personal history of urinary calculi; Z98.84 Bariatric surgery status; Z98.42 Cataract extraction status, left eye; Z98.41 Cataract extraction status, right eye; Z96.1 Presence of intraocular lens; Z96.653 Presence of artificial knee joint, bilateral
CPT/HCPCS: 92950; 99285; J0171; J7030